=== PATIENT | male | born 2000 | race Caucasian/White ===

== ENCOUNTER → 2020-09-18 09:38 | Outpatient (CLI) | payer OTHER, SELFPAY ==
[2020-09-18 11:42] LABS: Hemoglobin A1C% w Est Avg Glu 4.8 % (4.0-6.0)
[2020-09-18 11:54] LABS: Cholesterol 175 mg/dL (140-199); HDL Cholesterol 47 mg/dL (40-60); LDL Cholesterol Calculated 109 mg/dL (<100); Triglycerides 94 mg/dL (35-150)
== END ==
PROVIDERS: Family Provider Pediatrics; PCP Family Medicine; Referring Provider Family Medicine; Visit Provider Family Medicine
DX: E66.9 Obesity, unspecified (principal); G43.909 Migraine, unspecified, not intractable, without status migrainosus
CPT/HCPCS: 36415; 80061; 83036